=== PATIENT | female | born 1980 | race Caucasian/White ===

== ENCOUNTER 2019-01-20 14:32 | Inpatient (IN) ==
[2019-01-20] MEDS ORDERED: Mag Hydrox/Al Hydrox/Simeth 30 ML UDC PO PRN (17:08)
[2019-01-20] MEDS: methylPREDNISolone 4 MG TABLET PO SCH ×2 (17:44→22:12)
[2019-01-20] MEDS: SUMAtriptan succinate 50 MG TABLET PO PRN ×2 (19:54→22:05)
[2019-01-20] MEDS: Acetaminophen 325 MG TABLET PO PRN (19:55)
[2019-01-20] MEDS ORDERED: Acetaminophen 325 MG TABLET PO SCH (20:00)
[2019-01-21] MEDS: SUMAtriptan succinate 50 MG TABLET PO PRN ×6 (02:11→20:32)
[2019-01-21] MEDS: Acetaminophen 325 MG TABLET PO PRN (05:45)
[2019-01-21 06:00] LABS: Alanine Aminotransferase 32 Units/L (7-52); Albumin 3.9 g/dL (3.5-5.7); Albumin/Globulin Ratio 1.9 (1.1-2.2); Alkaline Phosphatase 43 Units/L (34-104); Aspartate Amino Transferase 27 Units/L (13-39); BUN/Creatinine Ratio 19 (6-26); Bilirubin,Total 0.4 mg/dL (0.3-1.0); Blood Urea Nitrogen 17 mg/dL (6-20); Calcium 9.4 mg/dL (8.6-10.3); Carbon Dioxide 29 mEq/L (23-29); Chloride 108 mEq/L (98-107); Globulin 2.1 g/dL (2.4-3.5); Glucose 93 mg/dL (70-105); Osmolality,Calculated 291 (280-300); Potassium 4.5 mEq/L (3.5-5.1); Sodium 140 mEq/L (136-145); eGFR For Non-African Americans > 60 (> 60)
[2019-01-21] MEDS: *HR* Enoxaparin 40 MG/0.4 ML SYRINGE SQ SCH (06:40)
[2019-01-21] MEDS: methylPREDNISolone 4 MG TABLET PO SCH ×2 (09:32→12:17)
[2019-01-21] MEDS: Aspirin Enteric Coated 81 MG Tablet PO SCH (09:33)
--- NOTE | 2019-01-21 14:30 | Internal Med History&Physical ---
Addendum entered and electronically signed by Palmer Brown MD 01/21/19 14:52: I have personally performed a face to face evaluation on this patient. I have r eviewed and agree with the care plan. History and Exam by me shows: Interesting and complicated problem. Therapy questions malingering but on careful neurologic exam, I do not believe that she could be producing these symptoms consciously or subconsciously. For the last year, she has had no multiple pneumonias, bronchitis, mononucleosis, bilateral salpingectomy oophorectomy, and now the most recent constellation of symptoms. The mononucleosis was about 4 months ago. She also states that she tested positive for influenza, twice. Week ago, she developed severe headache, neck ache, inability to speak, right shoulder pain, right upper and lower extremity weakness, other difficulties including nausea, inability to keep her balance. She was seen in consultation by Internet with [facility] and it was felt that she did not have a stroke based on MRI, CT. She has had some improvement in symptoms, thereafter. MRI showed white matter disease or white matter changes could be caused from vasculitis. Note, she had a noncritical carotid plaque and was placed on a statin for same. She lost 140 pounds by dietary change and exercise. She has been taping with decreased frequency, trying to quit smoking. She has about 6 monster drinks, daily. She does not eat well but trying to eat better. She denies alcohol, tobacco, marijuana or street drug use. She has history of rheumatoid arthritis but has a negative rheumatoid factor recent assessment as well as a negative AMA. She had involvement of fingers and toes and was on methotrexate for about 10 years and stopped year and half ago. She is on low dose Medrol but has not had any recent flares. She has been followed by a [facility]. Patient has no complaint of chest discomfort, dyspnea, orthopnea, breathing problems, palpitations, nausea or vomiting, constipation or diarrhea, other changes in bowel habits, heartburn, difficulty with urination, kidney problems or kidney stones, fevers chills or sweats, rash or itching, seizures, headache or lightheadedness, heat or cold intolerance, blood problems or anemia, or other new complaints, except as mentioned above. Review of systems is otherwise n egative. Examination: (Except as mentioned above): General: In no apparent distress, alert and oriented 3. Head: Atraumatic and normocephalic. Eyes: Extraocular muscles are intact, pupils equal round and reactive to light and accommodation. Sclerae anicteric. Ears: External ears are normal to inspection and hearing is grossly normal. Nose: Patent without lesion noted. Mouth: No intraoral lesions seen. Dentition is unremarkable. Neck: Supple with trachea midline. There is no thyromegaly or adenopathy and carotids are 2+ without bruit heard. Respiratory: No use of accessory muscles. Lungs are clear throughout. Normal airflow. Cardiovascular: Regular rate and rhythm without murmur appreciated. Abdomen: Bowel sounds are normal. No hepatosplenomegaly masses or tenderness. Obese and therefore difficult to palpate deeply. Extremities: No cyanosis clubbing or edema. Neurological: A and O 3. Cranial nerves II through XII are intact. She has right upper extremity weakness as well as decreased range of motion because of pain, cannot fully extend actively right shoulder. She she has right plantar flexion weakness which is 3+/5 and dorsiflexor weakness which is 2/5. Gait is l imited but active independently. Romberg is positive for instability. Skin: Warm and non-diaphoretic with no lesions noted. Breasts, pelvic and rectal: Not examined. She has an interesting constellation of symptoms that could represent MS, vasculitis, other mixed connective tissue disease etc. We will evaluate the symptoms on a recurring basis and order additional inflammatory lab work, consider repeat MRI, etc. In the meantime, she is to undergo further therapies and will proceed as per them. Original Note: Date of Encounter: 01/21/19 Time of Encounter: 14:28 Assessment and Plan (1) Right sided weakness Current visit: Yes Status: Acute PT and OT to eval and treat. will follow progress. will order and review testi ng performed. Internal Medicine - H&P: HPI Admitted From: Hospital to Hospital Transfer Plans for Post Hospital Care: Home History of present illness: Ms. Malin is a 38 year old female admits to rehab unit for PT, OT and ST after having right sided weakness. Presented to [facility] on 3\\13 with acute onset of right upper and lower extremity weakness. This was associated with difficulty in word finding and slurred speech. Stroke alert was called and [facility] neurology was consult it. She did not receive TPA as she was out of treatment window. Lab work was normal, EKG showed normal sinus rhythm and CTA of head and neck was also jose raul l during workup and the emergency room. She was followed by neurology throughout the course of 1st day. MRI brain showed no acute stroke single white matter signal change on T2 which appeared to be chronic in nature. Neurology stated likely a complicated mi graine or focal neurological deficit related to psychological stress. Patient states that she has had several illnesses and of course the past year. She had an appendectomy, salpin-oophorectomy bilat in 04/2018 , then started on estrodial. 2 cases of positive influenza with the last one being about 4 weeks ago. Was tested positive for Humphreys about a month ago, and reports to episodes of pneumonia in the past year. 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 She is a single mother, with 2 kids still living at home, ages 18 and 14. and drinks about 6 monster energy drinks per day. States she went through a rough divorce and has recently been in a toxic relationship with her boyfriend. She smokes but however in the past couple weeks she started to vape in order to cut down and stop smoking. States she was down to doing this 3 times a day. Patient states she lost over 100 pounds. She used to take methotrexate, which she was on for about 10 years and stops about a year ago. After a reported diagnosis of rheumatoid arthritis. Continues to complain of right upper and lower extremity weakness with headache, mainly at the cerebellar base that goes into her neck. Maintaining appetite and hydration. No meet new urinary symptoms. Denies shortness of breath or chest pain. Denies fever, chills, nausea vomiting or diarrhea. States bowels are moving as normal. States she is having trouble following tasks and gets "lost" when trying to ambulate with a cane. Also states she continues to have word finding difficulty with slow speech. States that she has had swollen lymph nodes in her neck and right axillary area since prior to all of the symptoms. States she feels like she has difficulty swallowing like "food is getting stuck and she has to force it down". Past Med Surg Social Fam HX - Past Medical History Medical history: kidney stones, RA, other Additional medical history: anemia Psychiatric history: no psych history - Past Surgical History Surgical History: appendectomy, hysterectomy, orthopedic, other, other Additional surgical history: right shoulder - Social History Smoking Status: Current every day smoker Smokeless Tobacco Status: No Alcohol use: occasionally Drug use: none - Family History Mother Adopted: No Living Status: Still Living Hx Family Cardiac Disorders: Yes Hx Family Endocrine Disorder: Yes Hx Family Neurologic Disorders: Yes (Hemorrhagic stroke in her 40s) Internal Medicine - H&P: Meds Estradiol 2 mg PO DAILY 01/15/19 [History] Amitriptyline [Elavil] 25 mg PO HS #30 tablet 01/17/19 [Rx] Aspirin Enteric Coated [Aspirin EC] 81 mg PO DAILY #30 tablet.dr 01/17/19 [Rx] Atorvastatin [Lipitor] 40 mg PO HS #30 tablet 01/17/19 [Rx] MethylPREDNISolone [MethylPREDNISolone Dose Pack] 4 mg PO TAPER #21 tab 01/17/19 [Rx] SUMAtriptan succinate [Imitrex] 25 mg PO Q2H PRN #60 tablet 01/17/19 [Rx] Allergy/AdvReac Type Severity Reaction Status Date / Time No Known Allergies Allergy Verified 01/15/19 12:27 All Systems PM: A 10-system review of systems was performed and is negative for pertinent findings except as documented above in the HPI. - Constitutional Constitutional: as per HPI, no chills, no fever(s), no night sweats - EENT Eyes: as per HPI, change in vision, no discharge, no pain, no photophobia Ears: no ear discharge, no ear pain, no tinnitus Nose, mouth and throat: as per HPI, sore throat, no dysphagia, no nasal discharge, no neck pain - Cardiovascular Cardiovascular ROS IM: as per HPI, no chest pain, no diaphoresis, no dyspnea, no lightheadedness, no palpitations, no syncope - Respiratory Respiratory: as per HPI, no cough, no dyspnea, no wheezing, no excessive phlegm production - Gastrointestinal Gastrointestinal: no abdominal pain, no diarrhea, no hematemesis, no hematochezia, no melena, no nausea, no vomiting - Genitourinary Genitourinary: no change in urinary stream, no dysuria, no flank pain, no hematuria - Musculoskeletal Musculoskeletal ROS IM: as per HPI, no numbness, no tingling - Integumentary Integumentary IM: no rash, no unusual bruising - Neurological Neurological ROS: as per HPI, no convulsions, no focal weakness, no numbness, no tingling, no tremor(s) - Psychiatric Psychiatric: as per HPI - Endocrine Endocrine IM: as per HPI - Hematologic/Lymphatic Hematologic/Lymphatic: no easy bruising - Constitutional Vitals: Temp Pulse Resp BP Pulse Ox 98.7 F 95 16 117/76 99 01/21/19 11:00 01/21/19 11:00 01/21/19 11:00 01/21/19 11:00 01/21/19 11:00 General appearance: Present: cooperative, A&O X 3, pleasant, no acute distress, answers questions appropriately - Head Head exam: Present: atraumatic, normocephalic - Eye Eye exam: Present: PERRL, conjuntiva pink, sclera anicteric Pupils: Present: PERRL - Neck Neck exam general surgery: Present: lymphadenopathy, supple, trachea midline Additional comments: palpable, moveable enlarged anterior cervical lymphnodes bilat <5mm - Respiratory Respiratory exam: Present: CTAB. Absent: accessory muscle use, rales, rhonchi, wheezes - Cardiovascular Cardiovascular exam: Present: RRR, +S1, +S2. Absent: diastolic murmur, gallop, rubs, systolic murmur - GI/Abdominal GI/Abdominal exam: Present: normal bowel sounds, soft, no peritoneal signs. Absent: distended, tenderness - Extremities Exam Extremities exam: Present: warm, radial pulses palpable and symmetrical. Absent: calf tenderness, cyanotic, pedal edema - Neurological Exam Neurological exam: Present: CN II-XII intact, oriented X3, no focal deficits. Absent: pronater drift, facial droop, speech deficit - Expanded Neurological Exam Neurological exam expanded: Present: ataxia Patient oriented to: Present: person, place, time Cranial Nerves: EOM's intact PM: Normal, nystagmus PM: Normal, tongue deviation PM: Normal Ataxia: Present: yes Cerebellar function: finger to nose: Normal, heel to garcia: Abnormal Right Upper motor neuron: pronator drift: Normal, sensory extinction: Normal Sensory exam: lower extremity temperature: Normal Neuro motor strength exam: LUE: 5, RUE: 3, LLE: 5, RLE: 3 - Skin Skin exam: Present: dry, intact Internal Med - H&P Results - Labs CBC & Chem 7: 01/21/19 05:35 Labs: BMP 01/21/19 05:35 Sodium 140 Potassium 4.5 Chloride 108 H Carbon Dioxide 29 BUN 17 Creatinine 0.88 Glucose 93 Calcium 9.4 Liver Function 01/21/19 Range/Units 05:35 Total Bilirubin 0.4 (0.3-1.0) mg/dL AST 27 (13-39) Units/L ALT 32 (7-52) Units/L Alkaline Phosphatase 43 (34-104) Units/L Albumin 3.9 (3.5-5.7) g/dL
[2019-01-21] MEDS: Melatonin 3 MG TABLET PO SCH (20:31)
[2019-01-21] MEDS ORDERED: methylPREDNISolone 4 MG TABLET PO ONE (21:00)
[2019-01-22] MEDS: SUMAtriptan succinate 50 MG TABLET PO PRN ×5 (02:22→19:02)
[2019-01-22] MEDS: *HR* Enoxaparin 40 MG/0.4 ML SYRINGE SQ SCH (05:49)
[2019-01-22] MEDS: methylPREDNISolone 4 MG TABLET PO SCH ×2 (09:28→21:56)
[2019-01-22] MEDS: Aspirin Enteric Coated 81 MG Tablet PO SCH (09:29)
[2019-01-22] MEDS: Acetaminophen 325 MG TABLET PO PRN (13:26)
--- NOTE | 2019-01-22 14:16 | Internal Med Progress Note ---
Addendum entered and electronically signed by Palmer Brown MD 01/22/19 15:22: Patient is being seen by other providers and/or therapies so I am not able to see her today. Original Note: Date of Encounter: 01/22/19 Time of Encounter: 14:12 - Assessment and plan (1) Right sided weakness Current Visit: Yes Status: Acute Assessment and plan: continue PT and oT. slowly improving. will follow progress. will repeat MRI of head. - Time Spent With Patient less than 15 minutes - Subjective Interval history: Participating well with therapy. Continues to have right sided weakness. Has improved slightly. Transfers with min assist. Ambulating hundred and 30 feet times 2 with contact guard assist with therapy. States she continues to have slight neck pain. Complains she did not sleep well last night. Maintaining appetite and hydration. - Constitutional Vitals: Temp Pulse Resp BP Pulse Ox 98.2 F 72 14 102/63 97 01/22/19 07:05 01/22/19 07:05 01/22/19 07:05 01/22/19 07:05 01/22/19 07:05 General appearance: Present: cooperative, A&O X 3, pleasant, no acute distress, answers questions appropriately - Head Head exam: Present: atraumatic, normocephalic - Eye Eye exam: Present: PERRL, conjuntiva pink, sclera anicteric Pupils: Present: PERRL - Neck Neck exam general surgery: Present: supple, trachea midline. Absent: lymphadenopathy - Respiratory Respiratory exam: Present: CTAB. Absent: accessory muscle use, rales, rhonchi, wheezes - Cardiovascular Cardiovascular exam: Present: RRR, +S1, +S2. Absent: diastolic murmur, gallop, rubs, systolic murmur - GI/Abdominal GI/Abdominal exam: Present: normal bowel sounds, soft, no peritoneal signs. Absent: distended, tenderness - Extremities Exam Extremities exam: Present: warm, radial pulses palpable and symmetrical. Absent: calf tenderness, cyanotic, pedal edema Additional comments: Right upper and right lower extremity strength 3\5. - Neurological Exam Neurological exam: Present: CN II-XII intact, oriented X3, no focal deficits. Absent: pronater drift, facial droop, speech deficit - Skin Skin exam: Present: dry, intact Internal Medicine: Result - Labs CBC & Chem 7: 01/21/19 05:35 Consult Discharge Plan - Plan Referrals: NONE,PCP [Primary Care Provider] -
--- NOTE | 2019-01-22 15:18 | Psychological Evaluation ---
Date of Encounter: 01/22/19 Time of Encounter: 10:30 History of Present Illness History of present illness: Ms. Malin is a 38 year old female admits to rehab unit for PT, OT and ST after having right sided weakness. [facility] with acute onset of right upper and lower extremity weakness. This was associated with difficulty in word finding and slurred speech. Stroke alert was called and [facility] neurology was consulted. She did not receive TPA as she was out of treatment window. Lab work was normal, EKG showed normal sinus rhythm and CTA of head and neck was also normal during workup and the emergency room. She was followed by neurology throughout the course of 1st day. MRI brain showed no acute stroke single white matter signal change on T2 which appeared to be chronic in nature. Neurology stated likely a complicated migraine or focal neurological deficit related to psychological stress. Patient states that she has had several illnesses and of course the past year. She had an appendectomy, salpin-oophorectomy bilat in 04/2018 , then started on estrodial. 2 cases of positive influenza with the last one being about 4 weeks ago. Was tested positive for Wetzel about a month ago, and reports to episodes of pneumonia in the past year. 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 She is a single mother, with 2 kids still living at home, ages 18 and 14. and drinks about 6 monster energy drinks per day. States she went through a rough divorce and has recently been in a toxic relationship with her boyfriend. She smokes but however in the past couple weeks she started to vape in order to cut down and stop smoking. States she was down to doing this 3 times a day. Patient states she lost over 100 pounds. She used to take methotrexate, which she was on for about 10 years and stopped about a year ago. After a reported diagnosis of rheumatoid arthritis. Past Medical History - Psychiatric History Psychiatric history: Reports: other Additional Psychiatric History: Reorted therapy in 2013 for eating disorder - during the 100+ weight loss. Recently she has been counseling with her pastures regarding current relationship with SO. Home Medications and Allergies Estradiol 2 mg PO DAILY 01/15/19 [History] Amitriptyline [Elavil] 25 mg PO HS #30 tablet 01/17/19 [Rx] Aspirin Enteric Coated [Aspirin EC] 81 mg PO DAILY #30 tablet. 01/17/19 [Rx] Atorvastatin [Lipitor] 40 mg PO HS #30 tablet 01/17/19 [Rx] MethylPREDNISolone [MethylPREDNISolone Dose Pack] 4 mg PO TAPER #21 tab 01/17/19 [Rx] SUMAtriptan succinate [Imitrex] 25 mg PO Q2H PRN #60 tablet 01/17/19 [Rx] Allergy/AdvReac Type Severity Reaction Status Date / Time No Known Allergies Allergy Verified 01/15/19 12:27 Social History - Social History Social History: Currently owns a home and lives with 2 of 4 children. Her SO also lives there but not assisting with anything and she has requested he leave. 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 SHe works 2 jobs to cover expenses. Mother is supportive. - Tobacco Use Smoking Status: Former smoker - Alcohol Use Alcohol Use: none - Drug Use Drug Use: none Cognitive/Emotional Assessment - Cognitive Ability Abstract Thinking Ability: No Deficits Noted Attention Span Ability: Capable of Sustained Attention Verbal Communication Ability: Conversational Style Level of Alertness: Alert Memory Description: Recent Intact, Remote Intact Orientation: Person, Place, Time Visual Spatial Deficit: No Deficits Noted Ability to Follow Directions: Good Speech Pattern: Normal rate, Normal rhythm, Normal tone, Appropriate, Coherent Thought Process: Intact - Emotional Status Mood Description: Depressed, Anxious Affect Description: Full range Coping Ability: Verbalizes positive coping skills Additional Findings: Stated she is anxious. Past 5 years have been extremely stressful and 2018 no different both physical and social issues. Assessment & Plan - Diagnosis (1) Adjustment disorder with mixed anxiety and depressed mood - Prognosis Prognosis: Good - Treatment Plan Treatment Plan/Recommendations: Will develop and train coping strategies for stress management. Needs to learn boundary setting. Treatment Frequency: Weekly while inpatient Next Session Date: 01/29/19 Procedures - Participants Therapy Participant: Patient - Session Time Session Start Time: 10:30 Session Stop Time: 11:00
--- NOTE | 2019-01-22 20:27 | Physcial Medicine-Consult Note ---
Date of Encounter: 01/22/19 Time of Encounter: 15:00 Physical Medicine - AP (1) Right sided weakness Status: Acute Assessment and plan: CVA vs EBV encephalitis vs MS vs advanced small vessel disease vs Conversion. The patient has give go weakness with strength testing and no long tract signs. It may be too early to see hyperreflexia or clonus. The patient felt she had an incomplete work up at [facility] and is requesting to be transferred to [facility] as an inpatient admission. She has brain and cervical MRI with contrast tomorrow, and a CRP. I will start her on a mild narcotic for her headache. Code(s): R53.1 - Weakness SNOMED Code(s): 968463070 Physical Medicine - HPI - Data of Consult Requesting Physician: Palmer Brown MD Primary Care Provider: PCP NONE - Consult Narrative History of present illness: Ms. Malin is a 38 year old RH female Admitted 01-15-2019 to [facility] with headache, neck stiffness, vision change, speech impairment, and right hemiparesis. Initial teleneurology stroke consult called this a CVA. CT wa negative. MRI showed small vessel white matter changes in left hemisphere. She had EBV infection approx. 2mos. earlier. [facility] Neurology thought her event was due to migraine/stress per patient. No neurology notes were sent with the patient. She continues to complain of ongoing headache, vertigo, and improving right sided weakness and numbness. She states her appetite is poor and even soft foods get stuck in her throat. She denies pain or bowel and bladder problems. She is anxious to go home. CC: Palmer Brown MD Past Med Surg Social Fam HX - Past Medical History Attestation: Yes The following information was validated with the patient. Medical history: kidney stones, RA, other Additional medical history: anemia Psychiatric history: no psych history - Past Surgical History Surgical History: appendectomy, hysterectomy, orthopedic, other, other Additional surgical history: right shoulder - Social History Smoking Status: Former smoker Smokeless Tobacco Status: No Alcohol use: none Drug use: none - Family History Mother Adopted: No Living Status: Still Living Hx Family Cardiac Disorders: Yes Hx Family Endocrine Disorder: Yes Hx Family Neurologic Disorders: Yes (Hemorrhagic stroke in her 40s) Medications and Allergies Estradiol 2 mg PO DAILY 01/15/19 [History] Amitriptyline [Elavil] 25 mg PO HS #30 tablet 01/17/19 [Rx] Aspirin Enteric Coated [Aspirin EC] 81 mg PO DAILY #30 tablet. 01/17/19 [Rx] Atorvastatin [Lipitor] 40 mg PO HS #30 tablet 01/17/19 [Rx] MethylPREDNISolone [MethylPREDNISolone Dose Pack] 4 mg PO TAPER #21 tab 01/17/19 [Rx] SUMAtriptan succinate [Imitrex] 25 mg PO Q2H PRN #60 tablet 01/17/19 [Rx] Allergy/AdvReac Type Severity Reaction Status Date / Time No Known Allergies Allergy Verified 01/15/19 12:27 All systems: reviewed and no additional remarkable complaints except as stated (HPI and PMH) Physical Medicine - Exam - Constitutional Vitals: Temp Pulse Resp BP Pulse Ox 98.0 F 91 15 99/95 96 01/22/19 19:17 01/22/19 19:17 01/22/19 19:17 01/22/19 19:17 01/22/19 19:17 General appearance: cooperative, no acute distress, thin - Head Head exam: Present: atraumatic, normocephalic - Eye Eye exam: Present: EOMI, PERRL - ENT ENT exam: Present: mucous membranes moist, normal exam, normal oropharynx - Neck Neck exam: Present: full ROM, lymphadenopathy - Respiratory Respiratory exam: Present: CTAB - Cardiovascular Cardiovascular exam: Present: RRR - GI/Abdominal GI/Abdominal exam: Present: normal bowel sounds - Extremities Exam Extremities exam: Present: full ROM. Absent: calf tenderness, pedal edema - Neurological Exam Neurological exam: Present: abnormal gait, alert, CN II-XII intact, oriented X3, reflexes normal, no focal deficits. Absent: strengths equal and symetr throughout, pronater drift, facial droop, speech deficit Additional comments: No coleman/Babinski. - Psychiatric Psychiatric exam: Present: anxious, normal affect - Skin Skin exam: Present: intact Physical Medicine - Results - Labs CBC & Chem 7: 01/21/19 05:35 Consult Discharge Plan - Plan Referrals: NONE,PCP [Primary Care Provider] -
[2019-01-22] MEDS ORDERED: *HR* Acetaminophen w/Cod 300-30 mg 1 TAB TABLET PO PRN (20:40)
[2019-01-22] MEDS: Melatonin 3 MG TABLET PO SCH (21:56)
[2019-01-22] MEDS: *HR* Acetaminophen w/Cod 300-30 mg 1 TAB TABLET PO PRN (21:56)
[2019-01-23] MEDS: *HR* Enoxaparin 40 MG/0.4 ML SYRINGE SQ SCH (04:34)
[2019-01-23] MEDS: Ondansetron ODT 4 MG TAB.RAPDIS SL PRN ×3 (04:35→15:41)
[2019-01-23] MEDS: *HR* Acetaminophen w/Cod 300-30 mg 1 TAB TABLET PO PRN ×4 (04:35→20:41)
[2019-01-23] MEDS ORDERED: methylPREDNISolone 4 MG TABLET PO ONE (08:00)
[2019-01-23] MEDS: Aspirin Enteric Coated 81 MG Tablet PO SCH (09:12)
[2019-01-23 09:44] LABS: Basophils % 0.5 %; Eosinophils # 0.2 K/mcL (0.0-0.6); Eosinophils % 3.2 %; Hematocrit 45.4 % (35.3-44.9); Hemoglobin 15.6 g/dL (11.5-15.4); Immature Granulocytes % 0.3 % (0-4); Lymphocytes # 2.2 K/mcL (0.6-4.6); Mean Corpuscular HGB Conc 34.4 g/dL (31.6-35.5); Mean Corpuscular Hemoglobin 32.9 pg (28.0-33.3); Mean Corpuscular Volume 95.8 fL (83.0-100.0); Mean Platelet Volume 10.2 fL (9.4-12.4); Monocytes # 0.5 K/mcL (0.0-1.3); Neutrophils # 3.3 K/mcL (1.6-8.9); Platelet Count 180 K/mcL (140-400); Red Blood Count 4.74 M/mcL (3.82-4.97); Red Cell Distribution Width 12.4 % (11.5-14.5)
[2019-01-23 09:57] LABS: Alanine Aminotransferase 48 Units/L (7-52); Albumin 4.5 g/dL (3.5-5.7); Albumin/Globulin Ratio 1.9 (1.1-2.2); Alkaline Phosphatase 46 Units/L (34-104); Aspartate Amino Transferase 31 Units/L (13-39); BUN/Creatinine Ratio 23 (6-26); Bilirubin,Total 0.5 mg/dL (0.3-1.0); Blood Urea Nitrogen 22 mg/dL (6-20); Calcium 9.7 mg/dL (8.6-10.3); Carbon Dioxide 29 mEq/L (23-29); Chloride 103 mEq/L (98-107); Globulin 2.4 g/dL (2.4-3.5); Glucose 95 mg/dL (70-105); Magnesium 1.8 mg/dL (1.6-2.6); Osmolality,Calculated 287 (280-300); Potassium 3.9 mEq/L (3.5-5.1); Sodium 137 mEq/L (136-145); Total Protein 6.9 g/dL (6.4-8.9); eGFR For Non-African Americans > 60 (> 60)
--- NOTE | 2019-01-23 12:18 | Internal Med Progress Note ---
Addendum entered and electronically signed by Palmer Brown MD 01/24/19 13:40: I have personally performed a face to face evaluation on this patient. I have r eviewed and agree with the care plan. History and Exam by me shows: The patient was evaluated by me yesterday but the note was not complete. This documentation is being completed today for that reason. The patient has a feeling that she has not been treated well here and would like to have answers about what she has. We have tried to explain to her about neurology availability here, etc. As described below, patient has insurance issues and has limited access unless we were to discharge her and she was to present to the emergency room at [facility]. She was told by her mother that she needs to stay here and decided to do so. Neurology consult is to be arranged for early next week, here, as outpatient clinic physician will be here. Discussed care with other providers and/or nursing. Patient has no complaint of chest discomfort, dyspnea, orthopnea, palpitations, nausea or vomiting, constipation or diarrhea, other changes in bowel habits, difficulty with urination, rash or itching, or other new complaints, except as mentioned above. Review of systems is otherwise negative. Examination: (Except as mentioned above): General: In no apparent distress. Alert and oriented 3. Nondiaphoretic. Head: Atraumatic and normocephalic. Respiratory: No use of accessory muscles. Lungs are clear throughout. Normal airflow. Cardiovascular: Regular rate and rhythm without murmur appreciated. Abdomen: Bowel sounds are normal. No hepatosplenomegaly mass or tenderness appreciated. Obese and therefore difficult to palpate deeply. Extremities: No cyanosis clubbing or edema. Skin: Warm and non-diaphoretic with no new lesions noted. Neurologically, his today, she shows signs of conversion in that she has ratcheting strength, and consistent right upper extremity weakness beyond 90 degrees, only. She has markedly diminished right lower extremity strength when it comes to active extension of the lower extremity but it is normal when the other leg is tested with flexion. The reverse examination is true of the right lower extremity, as well. This seems to represent conversion disorder and we will follow here, for now. Addendum entered and electronically signed by Garret Mendoza CNP 01/23/19 14:53: Patient and family has with concerns about patient's diagnosis of Annalise-Pelayo. Patient expressing concerns that possibly her paresis is secondary to a flareup of Annalise-Pelayo. Patient informed that she has been on cortical steroids earlier in her admission. Patient started on Valtrex for 3 days. The use of an antiviral was explained to the family and patient has been most likely having little effect. This was witnessed as understanding and all other questions were answered. Original Note: Date of Encounter: 01/23/19 Time of Encounter: 12:25 - Assessment and plan (1) Right sided weakness Current Visit: Yes Status: Acute Assessment and plan: Patient continues with her right hemiparesis with muscle strength at 4/5. Continued right pronator drift. Patient's MRI from today shows no acute process. No acute neurological deficits noted on exam. Patient states slight increase in strength. Patient has expressed desire to seek a second opinion from another hospital, but was informed that she cannot be transferred from this facility to [facility]. Patient has expressed no desire to be transferred back to [place] and has decided to stay for continued physical therapy. Patient does state that her strength has increased somewhat to her right extremities. Patient continues with complaints of nausea and was noted to have a low systolic blood pressure. Will start patient on IV fluids to rehydrate. (2) Nausea Current Visit: Yes Status: Acute Assessment and plan: Patient has had complaints of intermittent nausea since last evening. No vomiting noted. Patient states no triggered. We will continue to medicate with Zofran when necessary. No acute issues noted on exam. (3) Adjustment disorder with mixed anxiety and depressed mood Current Visit: Yes Status: Acute Assessment and plan: Patient continues with right hemiparesis, which has been diagnosed as possible conversion disorder per neurology, due to no supporting evidence on imagery to support a CVA. Patient was started on amitriptyline while at [place], but today states that she refuses medication. Patient states that she does not believe that she has any depression or anxiety. We will continue with supportive care and physical therapy. - Time Spent With Patient less than 15 minutes - Subjective Interval history: Patient shows some anxiety and has been with complaints of continued dizziness and nausea. Patient states that she has had nausea since last evening. Denies any known triggers. Patient states she continues to have dizziness, which increases when standing. Denies any actual headache at this time. Patient states that she feels her movement on her right has improved slightly. Patient continues with complaints of a right eye, medial cut, which has been acute with her initial admission. 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 They have also expressed concerns about the setting of nausea last evening, stating that they were concerned that this could be related to her hemiparesis. Patient stated concerns that she was informed that she had a lesion that showed on the MRI as she was informed by her neurologist. Patient's MRI results were reviewed with her with today's MRI showing no acute changes and continues to show no evidence of acute stroke, midline shift or mass effect. Continued hyperintensities left parietal and temporal white matter and per Neurology was diagnosed as a possible underlying chronic small vessel ischemic changes, vasculitis, or less likely demyelinating process. Patient and family continued to voice concerns, requesting a transfer to [facility] for a second opinion. [facility] was contacted and refused the transfer from a Rehab center and she would have to be transferred back to [place]. This was passed on to the patient and family and a decision was made to stay for rehab. Patient has made statements indicating that she does not except the diagnosis of conversion disorder for the reason of her right hemiparesis. Patient had also expressed displeasure and the fact that she was on amitriptyline and requested it to be discontinued. Patient has related through multiple statements that she has had multiple stressors between work, school and home and that she felt that she has coped well. - Constitutional Vitals: Temp Pulse Resp BP Pulse Ox 97.6 F 76 16 90/61 97 01/23/19 07:11 01/23/19 07:11 01/23/19 07:11 01/23/19 07:11 01/23/19 07:11 General appearance: Present: cooperative, A&O X 3, pleasant, no acute distress, answers questions appropriately - Head Head exam: Present: atraumatic, normocephalic - Eye Eye exam: Present: PERRL, conjuntiva pink, sclera anicteric Pupils: Present: PERRL - Neck Neck exam general surgery: Present: supple, trachea midline. Absent: lymphadenopathy - Respiratory Respiratory exam: Present: CTAB. Absent: accessory muscle use, rales, rhonchi, wheezes - Cardiovascular Cardiovascular exam: Present: RRR, +S1, +S2. Absent: diastolic murmur, gallop, rubs, systolic murmur - GI/Abdominal GI/Abdominal exam: Present: normal bowel sounds, soft, no peritoneal signs. Absent: distended, tenderness - Extremities Exam Extremities exam: Present: warm, radial pulses palpable and symmetrical. Absent: calf tenderness, cyanotic, pedal edema - Neurological Exam Neurological exam: Present: CN II-XII intact, oriented X3, pronater drift. Absent: facial droop, speech deficit Additional comments: Patient continues with right hemiparesis. RE noted to have 4/5 MS for prox/dist on ext/flex. LE with 5/5 MS. Left pronator drift noted to the LUE and LLE. CN 2- 12 intact. Patient with a medial visual cut noted to the right eye. Left eye with central vision and decreased peripheral cee. No decreased sensitivity on exam. No clonus, Hoffmanns, hyperreflexia. - Skin Skin exam: Present: dry, intact Internal Medicine: Result - Labs CBC & Chem 7: 01/23/19 09:15 01/23/19 09:15 Labs: Short CBC 01/23/19 Range/Units 09:15 WBC 6.3 (4.3-11.1) K/mcL Hgb 15.6 H D (11.5-15.4) g/dL Hct 45.4 H (35.3-44.9) % Plt Count 180 (140-400) K/mcL Neutrophils # 3.3 (1.6-8.9) K/mcL BMP 01/23/19 09:15 Sodium 137 Potassium 3.9 Chloride 103 Carbon Dioxide 29 BUN 22 H Creatinine 0.96 Glucose 95 Calcium 9.7 Liver Function 01/23/19 Range/Units 09:15 Total Bilirubin 0.5 (0.3-1.0) mg/dL AST 31 (13-39) Units/L ALT 48 (7-52) Units/L Alkaline Phosphatase 46 (34-104) Units/L Albumin 4.5 (3.5-5.7) g/dL - Impressions Impressions Brain MRI 01/23/19 10:44 IMPRESSION: 1. No acute intracranial abnormality. No acute infarct. 2. No significant change in the nonspecific T2 FLAIR hyperintensity within the left posterior periventricular white matter. Diagnostic considerations include sequelae of chronic migraines, demyelinating lesions or perhaps vasculitis. Early chronic microvascular ischemic changes are felt to be less likely given patient's age. D/ / Herminio Castaneda MD / Herminio Castaneda MD Interpreting Provider: Herminio Castaneda MD Cervical Spine MRI 01/23/19 10:45 IMPRESSION: 1. Mild spinal canal stenosis, moderate left and mild right neural foraminal narrowing at C6-7 secondary to a posterior disc osteophyte complex and uncovertebral overgrowth. 2. Disc bulge and uncovertebral overgrowth at C5-6 with mild effacement of the ventral aspect of the thecal sac. 3. No abnormality of the cervical spinal cord evident. D/ / 01/23/2019 08:04:50 Chano Ramirez MD / alisia Interpreting Provider: Chano Ramirez MD Consult Discharge Plan - Plan Referrals: NONE,PCP [Primary Care Provider] -
[2019-01-23] MEDS: SUMAtriptan succinate 50 MG TABLET PO PRN (12:40)
[2019-01-23] MEDS: 0.9 % Sodium Chloride 1,000 ML IVC SCH (15:19)
[2019-01-23] MEDS: valACYclovir 500 MG TABLET PO SCH (20:40)
[2019-01-23] MEDS: Melatonin 3 MG TABLET PO SCH (20:41)
[2019-01-24] MEDS: *HR* Acetaminophen w/Cod 300-30 mg 1 TAB TABLET PO PRN ×5 (01:51→23:55)
[2019-01-24] MEDS: 0.9 % Sodium Chloride 1,000 ML IVC SCH (03:21)
[2019-01-24 05:41] LABS: BUN/Creatinine Ratio 22 (6-26); Blood Urea Nitrogen 21 mg/dL (6-20); Calcium 8.9 mg/dL (8.6-10.3); Carbon Dioxide 31 mEq/L (23-29); Chloride 104 mEq/L (98-107); Glucose 91 mg/dL (70-105); Osmolality,Calculated 289 (280-300); Potassium 3.7 mEq/L (3.5-5.1); Sodium 138 mEq/L (136-145); eGFR For Non-African Americans > 60 (> 60)
[2019-01-24] MEDS: *HR* Enoxaparin 40 MG/0.4 ML SYRINGE SQ SCH (06:32)
[2019-01-24] MEDS: valACYclovir 500 MG TABLET PO SCH ×2 (08:55→20:50)
[2019-01-24] MEDS: Aspirin Enteric Coated 81 MG Tablet PO SCH (08:55)
[2019-01-24] MEDS: SUMAtriptan succinate 50 MG TABLET PO PRN (08:58)
[2019-01-24] MEDS: Ondansetron ODT 4 MG TAB.RAPDIS SL PRN (08:58)
--- NOTE | 2019-01-24 09:34 | Internal Med Progress Note ---
Addendum entered and electronically signed by Palmer Brown MD 01/24/19 13:43: I have personally performed a face to face evaluation on this patient. I have r eviewed and agree with the care plan. History and Exam by me shows: Patient notes marked improvement in her strength. She still has a headache and this caused her to have nausea that and photophobia when she does not take her Tylenol 3 and Zofran. Strength testing is markedly improved and she is pleased with that and asked if she can go home. I told her I would speak with therapists and hopefully they would help us decide. Patient has no other acute complaints. She is pleased that she gets to be seeing a neurologist on Sunday. I told her this may not be possible because of his schedule. He said that is okay because she would like to see another neurologist, anyway. Discussed care with other providers and/or nursing. Patient has no complaint of chest discomfort, dyspnea, orthopnea, palpitations, nausea or vomiting, constipation or diarrhea, other changes in bowel habits, d ifficulty with urination, rash or itching, or other new complaints, except as mentioned above. Review of systems is otherwise negative. Examination: (Except as mentioned above): General: In no apparent distress. Alert and oriented 3. Nondiaphoretic. Head: Atraumatic and normocephalic. Respiratory: No use of accessory muscles. Lungs are clear throughout. Normal airflow. Cardiovascular: Regular rate and rhythm without murmur appreciated. Abdomen: Bowel sounds are normal. No hepatosplenomegaly mass or tenderness appreciated. Patient is examined upright in chair and this also limits exam. Extremities: No cyanosis clubbing or edema. Skin: Warm and non-diaphoretic with no new lesions noted. Strength is improved but still inconsistent and indicating conversion. Per patient and nursing, therapy has been made independent in room. She is rapidly improving. Original Note: Date of Encounter: 01/24/19 Time of Encounter: 09:32 - Assessment and plan (1) Right sided weakness Current Visit: Yes Status: Acute Assessment and plan: Patient continues with her right hemiparesis with muscle strength at 4/5. Continued right pronator drift. Patient's MRI from today shows no acute p rocess. No acute neurological deficits noted on exam. Patient states slight increase in strength for the right ext. Patient has expressed desire to seek a second opinion from another hospital, but was informed that she cannot be transferred from this facility to [facility]. Patient has expressed no desire to be transferred back to [place] and has decided to stay for continued physical therapy. Patient does state that her strength has increased somewhat to her right extremities. Patient continues to c/o nausea, but no vomiting. SBP >100 after rec'd IVF. Will continue to monitor. Patient to f/u with Neurology on Sunday. (2) Nausea Current Visit: Yes Status: Acute Assessment and plan: Patient has had complaints of intermittent nausea since last evening. No vomiting noted. Patient states no triggered. We will continue to medicate with Zofran when necessary. No acute issues noted on exam. (3) Adjustment disorder with mixed anxiety and depressed mood Current Visit: Yes Status: Acute Assessment and plan: Patient continues with right hemiparesis, which has been diagnosed as possible conversion disorder per neurology, due to no supporting evidence on imagery to support a CVA. Patient states that she does not believe that she has any depression or anxiety and has refused antidepressant medications. We will continue with supportive care and physical therapy. - Time Spent With Patient less than 15 minutes - Subjective Interval history: Patient shows some anxiety and has been with complaints of continued dizziness and nausea. Patient denies any actual vomiting but states she continues to have the intermittent. Patient states she continues to have dizziness, which increases when standing. Patient received IV fluids overnight, but states no change in her dizziness. Nurse reports patient's blood pressure currently with systolic greater than 100. Denies any actual headache at this time for me, but had complaints of headache just prior to my exam to nursing and requesting pain medication. Patient states that she feels her movement on her right has improved slightly, but continues to complain of a heaviness that she feels both the right arm and leg. Patient continues with complaints of a right eye, medial cut, which has been acute with her initial admission. 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 Patient with Center vision to her left eye from previous histoplasmosis infection. - Neck Neck exam general surgery: Present: supple, trachea midline. Absent: lymphadenopathy - Respiratory Respiratory exam: Present: CTAB. Absent: accessory muscle use, rales, rhonchi, wheezes - Cardiovascular Cardiovascular exam: Present: RRR, +S1, +S2. Absent: diastolic murmur, gallop, rubs, systolic murmur - GI/Abdominal GI/Abdominal exam: Present: normal bowel sounds, soft, no peritoneal signs. Absent: distended, tenderness - Extremities Exam Extremities exam: Present: warm, radial pulses palpable and symmetrical. Absent: calf tenderness, cyanotic, pedal edema - Neurological Exam Neurological exam: Present: CN II-XII intact, oriented X3, pronater drift. Absent: facial droop, speech deficit Additional comments: Patient continues with right hemiparesis with RE at 4/5 for prox/dist on ext/flex. LE 5/5 MS. Continued c/o limb heaviness, but denies any loss of sensation or paresthesia. No Amy's, clonus or hyperreflexia. Continued visual loss as mentioned above. No acute neuro deficits since last exam. - Skin Skin exam: Present: dry, intact Internal Medicine: Result - Labs CBC & Chem 7: 01/23/19 09:15 01/24/19 05:00 Labs: Short CBC 01/23/19 Range/Units 09:15 WBC 6.3 (4.3-11.1) K/mcL Hgb 15.6 H D (11.5-15.4) g/dL Hct 45.4 H (35.3-44.9) % Plt Count 180 (140-400) K/mcL Neutrophils # 3.3 (1.6-8.9) K/mcL BMP 01/23/19 01/24/19 09:15 05:00 Sodium 137 138 Potassium 3.9 3.7 Chloride 103 104 Carbon Dioxide 29 31 H BUN 22 H 21 H Creatinine 0.96 0.97 Glucose 95 91 Calcium 9.7 8.9 Liver Function 01/23/19 Range/Units 09:15 Total Bilirubin 0.5 (0.3-1.0) mg/dL AST 31 (13-39) Units/L ALT 48 (7-52) Units/L Alkaline Phosphatase 46 (34-104) Units/L Albumin 4.5 (3.5-5.7) g/dL Consult Discharge Plan - Plan Referrals: NONE,PCP [Primary Care Provider] -
[2019-01-24] MEDS: Melatonin 3 MG TABLET PO SCH (20:50)
[2019-01-25] MEDS: *HR* Enoxaparin 40 MG/0.4 ML SYRINGE SQ SCH (05:40)
[2019-01-25] MEDS: SUMAtriptan succinate 50 MG TABLET PO PRN ×3 (05:44→21:01)
[2019-01-25] MEDS: *HR* Acetaminophen w/Cod 300-30 mg 1 TAB TABLET PO PRN ×3 (09:04→17:52)
[2019-01-25] MEDS: Aspirin Enteric Coated 81 MG Tablet PO SCH (09:04)
[2019-01-25] MEDS: valACYclovir 500 MG TABLET PO SCH ×2 (09:04→21:00)
--- NOTE | 2019-01-25 16:27 | Internal Med Progress Note ---
Date of Encounter: 01/25/19 Time of Encounter: 16:00 - Assessment and plan (1) Right sided weakness Current Visit: Yes Status: Acute Assessment and plan: Patient continues with her right hemiparesis with muscle strength at 4/5. Mot recent MRI showed no acute process. Patient did express desire to seek a second opinion from another hospital, but was informed that she cannot be transferred from this facility to [facility]. Patient expressed no desire to be transferred back to [place] and has decided to stay for continued physical therapy. Patient to f/u with Neurology on Sunday. (2) Adjustment disorder with mixed anxiety and depressed mood Current Visit: Yes Status: Acute Assessment and plan: Patient continues with right hemiparesis, which has been diagnosed as possible conversion disorder per neurology, due to no supporting evidence on imagery to support a CVA. Patient states that she does not believe that she has any depression or anxiety and has refused antidepressant medications. We will continue with supportive care and physical therapy. - Time Spent With Patient less than 15 minutes - Subjective Interval history: No acute event. Still having right-sided weakness and MILLER from time to time. Hoping for a good rest tonight. - Constitutional Vitals: Temp Pulse Resp BP Pulse Ox 98.1 F 92 18 112/57 100 01/25/19 07:44 01/25/19 07:44 01/25/19 07:44 01/25/19 07:44 01/25/19 07:44 General appearance: Present: cooperative, A&O X 3, pleasant, no acute distress, answers questions appropriately Exam: Gen: A&Ox3, NAD. HEENT: NCAT. Neck: No palpable lymphadenopathy or thyromegaly. CV: RRR, S1S2. No murmur. Capillary refill < 2 seconds. Pulm: CTAB. Abd: (+)BS. NDNT. Neuro: Right-sided weakness, otherwise non-focal. Skin: No rash. Ext: No pitting edema. Internal Medicine: Result - Labs CBC & Chem 7: 01/23/19 09:15 01/24/19 05:00 Consult Discharge Plan - Plan Referrals: NONE,PCP [Primary Care Provider] -
[2019-01-25] MEDS: Melatonin 3 MG TABLET PO SCH (21:00)
[2019-01-26] MEDS: *HR* Acetaminophen w/Cod 300-30 mg 1 TAB TABLET PO PRN ×4 (01:18→20:19)
[2019-01-26] MEDS: Aspirin Enteric Coated 81 MG Tablet PO SCH (07:39)
[2019-01-26] MEDS: *HR* Enoxaparin 40 MG/0.4 ML SYRINGE SQ SCH (07:39)
[2019-01-26] MEDS: valACYclovir 500 MG TABLET PO SCH ×2 (07:40→20:18)
[2019-01-26] MEDS: SUMAtriptan succinate 50 MG TABLET PO PRN ×2 (12:17→23:47)
--- NOTE | 2019-01-26 13:06 | Internal Med Progress Note ---
Date of Encounter: 01/26/19 Time of Encounter: 12:10 - Assessment and plan (1) Right sided weakness Current Visit: Yes Status: Acute Assessment and plan: Patient continues with her right hemiparesis with muscle strength at 4/5. Mot recent MRI showed no acute process. Patient did express desire to seek a second opinion from another hospital, but was informed that she cannot be transferred from this facility to [facility]. Patient expressed no desire to be transferred back to [place] and has decided to stay for continued physical therapy. Patient to f/u with Neurology on Sunday. (2) Adjustment disorder with mixed anxiety and depressed mood Current Visit: Yes Status: Acute Assessment and plan: Patient continues with right hemiparesis, which has been diagnosed as possible conversion disorder per neurology, due to no supporting evidence on imagery to support a CVA. Patient states that she does not believe that she has any depression or anxiety and has refused antidepressant medications. We will continue with supportive care and physical therapy. - Subjective Interval history: No acute event. Slept the same last night as any previous night. Family/friends visiting at the time of this encounter. - Constitutional Vitals: Temp Pulse Resp BP Pulse Ox 98.3 F 80 18 96/63 97 01/26/19 07:10 01/26/19 07:10 01/26/19 07:10 01/26/19 07:10 01/26/19 07:10 General appearance: Present: cooperative, A&O X 3, pleasant, no acute distress, answers questions appropriately Exam: Gen: A&Ox3, NAD. HEENT: NCAT. Neck: No palpable lymphadenopathy or thyromegaly. CV: RRR, S1S2. No murmur. Capillary refill < 2 seconds. Pulm: CTAB. Abd: (+)BS. NDNT. Neuro: Right-sided weakness, otherwise non-focal. Skin: No rash. Ext: No pitting edema. Internal Medicine: Result - Labs CBC & Chem 7: 01/23/19 09:15 01/24/19 05:00 Consult Discharge Plan - Plan Referrals: NONE,PCP [Primary Care Provider] -
[2019-01-26 18:30] LABS: SSA 52 (Anti-RO) Antibody 3 AU/mL (0-40); SSA 60 (Anti-RO) Antibody 1 AU/mL (0-40)
[2019-01-26] MEDS: Melatonin 3 MG TABLET PO SCH (20:23)
[2019-01-27] MEDS: *HR* Enoxaparin 40 MG/0.4 ML SYRINGE SQ SCH (03:31)
[2019-01-27] MEDS: *HR* Acetaminophen w/Cod 300-30 mg 1 TAB TABLET PO PRN ×3 (03:32→12:50)
[2019-01-27 08:31] VITALS: BP 120/77
[2019-01-27] MEDS: Ondansetron ODT 4 MG TAB.RAPDIS SL PRN (10:18)
[2019-01-27] MEDS: Aspirin Enteric Coated 81 MG Tablet PO SCH (10:18)
--- NOTE | 2019-01-27 11:37 | Discharge Summary ---
<Renetta Boothe - Last Filed: 01/27/19 11:34> - NOTES TO OUTPATIENT PROVIDER Notes to Outpatient Provider: Follow up with PCP and one week. Will continue outpatient physical therapy and instructed not to drive until cleared was driving simulator. Date of Encounter: 01/27/19 Time of Encounter: 11:34 - Discharge Diagnosis (1) Right sided weakness Priority: Primary Status: Acute Comments: Continue PT and OT. Will do this as outpatient setting. Has appointment with neurology this afternoon. (2) Adjustment disorder with mixed anxiety and depressed mood Priority: Primary Status: Acute Comments: Follow up with psych and PCP. Hospital course: Ms. Malin is a 38 year old female discharging to home. Will continue outpatient physical and occupational therapy. Instructed not to drive. Will be testing on driving simulator. Follow up with PCP within one week. Follow up with neurologist as scheduled. Continues to have left-sided weakness MRI of brain and cervical spine inconclusive to support symptoms. Patient denies headache, fever, chills, nausea vomiting or diarrhea this morning. States that she took Aleida lacks and drink prune juice. Unsure when last bowel movement was. States she feels constipated. Ambulating by self with cane. Discharge discussed with: patient, family, nurse, social work - Time Spent with Patient Total time spent providing and/or coordinating discharge services: - Discharge Medications Prescriptions: New Acetaminophen [Tylenol] 650 mg PO Q4HR PRN tablet PRN Reason: Breakthrough Pain Acetaminophen w/Cod 300-30 mg [Tylenol w/Codeine #3] 1 tab PO Q6HR PRN 7 Days #28 tablet PRN Reason: Migraine Headache Ondansetron ODT [Zofran ODT] 8 mg SL Q6HR PRN #12 tab.rapdis PRN Reason: Nausea And Vomiting DiphenhydraMINE [Benadryl] 50 mg PO HS PRN capsule PRN Reason: insomnia Polyethylene Glycol 3350 [MiraLAX] 17 gm PO DAILY PRN powd.pack PRN Reason: Constipation Continue Estradiol 2 mg PO DAILY Aspirin Enteric Coated [Aspirin EC] 81 mg PO DAILY #30 tablet. Atorvastatin [Lipitor] 40 mg PO HS #30 tablet SUMAtriptan succinate [Imitrex] 25 mg PO Q2H PRN #9 tablet PRN Reason: Migraine Headache Discontinued Amitriptyline [Elavil] 25 mg PO HS #30 tablet MethylPREDNISolone [MethylPREDNISolone Dose Pack] 4 mg PO TAPER #21 tab Home Medications: Estradiol 2 mg PO DAILY 01/15/19 [History] Aspirin Enteric Coated [Aspirin EC] 81 mg PO DAILY #30 tablet. 01/17/19 [Rx] Acetaminophen [Tylenol] 650 mg PO Q4HR PRN tablet 01/27/19 [Rx] Acetaminophen w/Cod 300-30 mg [Tylenol w/Codeine #3] 1 tab PO Q6HR PRN 7 Days #28 tablet 01/27/19 [Rx] Atorvastatin [Lipitor] 40 mg PO HS #30 tablet 01/27/19 [Rx] DiphenhydraMINE [Benadryl] 50 mg PO HS PRN capsule 01/27/19 [Rx] Ondansetron ODT [Zofran ODT] 8 mg SL Q6HR PRN #12 tab.rapdis 01/27/19 [Rx] Polyethylene Glycol 3350 [MiraLAX] 17 gm PO DAILY PRN powd.pack 01/27/19 [Rx] SUMAtriptan succinate [Imitrex] 25 mg PO Q2H PRN #9 tablet 01/27/19 [Rx] Allergies/Adverse Reactions: Allergy/AdvReac Type Severity Reaction Status Date / Time No Known Allergies Allergy Verified 01/15/19 12:27 Date of admission: 01/20/19 16:43 Primary care physician: Abiola Isaacs CNP Consults: 01/20/19 17:03 Consult to Occupational Therapy [CONS] Routine Comment: Evaluate, develop and implement POC Reason for Consult: right side weakness s/p complex migraine Does patient have active BEDREST order?: No Is patient medically & hemodynamically stable?: Yes Patient assessed for mobility or mobilized this visit?: No Consult to Physical Medicine/Rehab [CONS] Routine Reason for Consult: right side weakness s/p complex migraine Call Completed: Yes Consult to Physical Therapy [CONS] Routine Comment: Evaluate, develop and implement POC Reason for Consult: right side weakness s/p complex migraine Does patient have active BEDREST order?: No Is patient medically & hemodynamically stable?: Yes Patient assessed for mobility or mobilized this visit?: No Consult to Recreational Therapy [CONS] Routine Comment: Evaluate, develop and implement POC Consult to Beam Warper [CONS] Routine Reason for SW Consult: d/c planning 01/21/19 10:15 Consult to Speech Therapy [CONS] Routine Comment: Evaluate, develop and implement POC Reason for Consult: slowed speech Call Completed: Yes 01/21/19 13:54 Consult to Psychology [CONS] Routine Consulting Provider: Marii Stroud Reason for Consult: Possible depression; adjustment disorder Call Completed: No Discharging clinician: Palmer Brown Anticipated date of discharge: 01/27/19 - Constitutional Vitals: Temp Pulse Resp BP Pulse Ox 98.0 F 84 18 120/77 95 01/27/19 08:30 01/27/19 08:30 01/27/19 08:30 01/27/19 08:30 01/27/19 08:30 General appearance: Present: cooperative, A&O X 3, pleasant, no acute distress, answers questions appropriately - Head Head exam: Present: atraumatic, normocephalic - Eye Eye exam: Present: PERRL, conjuntiva pink, sclera anicteric Pupils: Present: PERRL - Neck Neck exam general surgery: Present: supple, trachea midline. Absent: lymphadenopathy Additional comments: left posterior cervical lymphadenopathy, <5mm, movable and tender. - Respiratory Respiratory exam: Present: CTAB. Absent: accessory muscle use, rales, rhonchi, wheezes - Cardiovascular Cardiovascular exam: Present: RRR, +S1, +S2. Absent: diastolic murmur, gallop, rubs, systolic murmur - GI/Abdominal GI/Abdominal exam: Present: normal bowel sounds, soft, no peritoneal signs. Absent: distended, tenderness - Extremities Exam Extremities exam: Present: warm, radial pulses palpable and symmetrical. Absent: calf tenderness, cyanotic, pedal edema Additional comments: left sided weakness LUE and LLE strength 4/5 - Neurological Exam Neurological exam: Present: CN II-XII intact, oriented X3, no focal deficits. Absent: pronater drift, facial droop, speech deficit - Skin Skin exam: Present: dry, intact - Patient Status Disposition: Home, Self-Care Condition: Good Functional capacity at discharge: uses cane/walker Overall status at discharge: patient is progressing back to baseline - Discharge Instructions Follow Up With: NONE,PCP [Non-Partnered Physician] - - Diet and Activity Activity: as per physical therapy, increase activity as tolerated Diet: advance to your usual diet <Palmer Brwon D - Last Filed: 01/27/19 13:23> Date of Encounter: 01/27/19 Hospital course: Please see Ms. Boothe's note. Concur, except it is right-sided weakness, especially of the upper extremity. She has new concerns about a "bulging disc" in her neck. I deferred her to neurology and therapy. We also suggested she follow with primary care physician. She is concerned about her neck from the standpoint of lymph nodes and I told her this can last for months after her mononucleosis. She is feeling slightly constipated and I agree that she is to have MiraLAX as needed. She will be discharged with a week's worth of medications for follow- up. Conversion is still confirmed by all therapies. She asks about driving and I told her not until occupational therapy once her on a driving simulator and she passes that test. She asks about flying to [place] to see her son I told her this would be acceptable. - Time Spent with Patient Total time spent providing and/or coordinating discharge services: Date of admission: 01/20/19 16:43 Primary care physician: Abiola Isaacs CNP Consults: 01/20/19 17:03 Consult to Occupational Therapy [CONS] Routine Comment: Evaluate, develop and implement POC Reason for Consult: right side weakness s/p complex migraine Does patient have active BEDREST order?: No Is patient medically & hemodynamically stable?: Yes Patient assessed for mobility or mobilized this visit?: No Consult to Physical Medicine/Rehab [CONS] Routine Reason for Consult: right side weakness s/p complex migraine Call Completed: Yes Consult to Physical Therapy [CONS] Routine Comment: Evaluate, develop and implement POC Reason for Consult: right side weakness s/p complex migraine Does patient have active BEDREST order?: No Is patient medically & hemodynamically stable?: Yes Patient assessed for mobility or mobilized this visit?: No Consult to Recreational Therapy [CONS] Routine Comment: Evaluate, develop and implement POC Consult to Beam Warper [CONS] Routine Reason for SW Consult: d/c planning 01/21/19 10:15 Consult to Speech Therapy [CONS] Routine Comment: Evaluate, develop and implement POC Reason for Consult: slowed speech Call Completed: Yes 01/21/19 13:54 Consult to Psychology [CONS] Routine Consulting Provider: Marii Stroud Reason for Consult: Possible depression; adjustment disorder Call Completed: No - Constitutional Vitals: Temp Pulse Resp BP Pulse Ox 98.0 F 84 18 120/77 95 01/27/19 08:30 01/27/19 08:30 01/27/19 08:30 01/27/19 08:30 01/27/19 08:30 Exam: Discussed care with other providers and/or nursing. Patient has no complaint of chest discomfort, dyspnea, orthopnea, palpitations, nausea or vomiting, constipation or diarrhea, other changes in bowel habits, difficulty with urination, rash or itching, or other new complaints, except as mentioned above. Review of systems is otherwise negative. Examination: (Except as mentioned above): General: In no apparent distress. Alert and oriented 3. Nondiaphoretic. Head: Atraumatic and normocephalic. Respiratory: No use of accessory muscles. Lungs are clear throughout. Normal airflow. Cardiovascular: Regular rate and rhythm without murmur appreciated. Abdomen: Bowel sounds are normal. No hepatosplenomegaly mass or tenderness appreciated. Obese and therefore difficult to palpate deeply. Extremities: No cyanosis clubbing or edema. Skin: Warm and non-diaphoretic with no new lesions noted. Neurologically, she still has right sided weakness which is inconsistent.
== END 2019-01-27 14:51 | disposition home or self-care (01) | DRG 945 ==
LOC: INPGRE 16:43